=== PATIENT | female | born 1995 | race Hispanic/Latino ===

== ENCOUNTER 2018-05-22 10:44 | Outpatient (CLI) | payer BC, OTHER ==
--- NOTE | 2018-05-22 13:25 | ULT ---
PELVIC ULTRASOUND: HISTORY: Evaluate dates and viability of a . COMPARISON: None. TECHNIQUE: Transabdominal imaging is performed. The ovaries are interrogated with cornejo-scale, color-flow, Doppler imaging, and spectral wave-form eliana lysis. FINDINGS: The uterus is identified, measuring 5.7 x 6.6 x 14.2 cm. Within the endometrium, there is a gestatio nal sac and a pole. The yolk sac is not appreciated. [place]-rump length is 4.2 cm, correspondi ng to a gestational age of 11 weeks 1 day. heart tones with a rate of 167 beats per minute. N o subchorionic hemorrhage. No free fluid in the pelvis. The right ovary has a normal echotexture, measuring 3.5 x 2.6 x 2.1 cm. The left ovary has a normal echotexture, measuring 3.6 x 1.8 x 2.5 cm. On ovarian Doppler, there is vascular flow to both ovaries. IMPRESSION: 1. Single intrauterine gestation. Average age by sonography is 11 weeks 1 day. 2. heart tones are present. POS: [facility]
== END 2018-05-22 10:45 | disposition home or self-care (01) ==
LOC: BICULT 10:44
PROVIDERS: ATTEND Nurse Practitioner
DX: Z34.01 Encounter for supervision of normal first pregnancy, first trimester (principal); Z3A.11 11 weeks gestation of pregnancy
CPT/HCPCS: 76856; 93976